=== PATIENT | male | born 1990 | race Two or more races ===

== ENCOUNTER 2022-10-18 10:26 | Emergency (ER) | payer OTHER ==
[2022-10-18 10:30] VITALS: RESP 18; TEMP 97.8; BMI 51.1
[2022-10-18] MEDS ORDERED: KETOROLAC TROMETHAMINE 30 MG/1 ML VIAL IM ONE (11:31)
[2022-10-18] MEDS ORDERED: KETOROLAC TROMETHAMINE 30 MG/1 ML VIAL ONE (11:36)
[2022-10-18 11:58] VITALS: BP 152/88; PULSE 89
== END 2022-10-18 12:10 | disposition home or self-care (01) ==
LOC: JERFT 10:26
PROC: 3E023GC Introduction of Other Therapeutic Substance into Muscle, Percutaneous Approach (ICD-10-PCS; principal; 2022-10-18)
DX: S80.01XA Contusion of right knee, initial encounter (principal); W10.8XXA Fall (on) (from) other stairs and steps, initial encounter
CPT/HCPCS: 73562-TC-RT-FY; 99284-25